=== PATIENT | male | born 1975 | race African-American/Black ===

== ENCOUNTER 2022-04-11 17:22 | Emergency (ER) | payer OTHER, SELFPAY ==
--- NOTE | 2022-04-11 17:33 | ECG_ITS ---
Measurements Intervals Leon Rate: 85 P: 68 ME: 244 QRS: 61 QRSD: 90 T: 37 QT: 335 QTc: 398 Interpretive Statements SINUS RHYTHM WITH FIRST DEGREE AV BLOCK POSSIBLE LEFT VENTRICULAR HYPERTROPHY ST SEGMENT ABNORMALITY-SUGGEST EARLY REPOLARIZATION VERSUS PERICARDITIS Electronically Signed On 04-12-2022 8:55:06 CDT by Dayo Andino M.D.
[2022-04-11 17:35] VITALS: BP 94/80; PULSE 98; RESP 20; TEMP 36.3; O2SAT 96
[2022-04-11 17:55] LABS: Basophils Absolute Auto 0.05 K/mm3 (0.00-0.10); Basophils Percent Auto 0.5 % (0.0-1.0); Hematocrit 44.8 % (40.0-54.0); Hemoglobin 14.6 g/dL (14.0-18.0); Immature Granulocyte Absolute 0.03 K/mm3 (0.00-0.00); Immature Granulocyte Percent A 0.3 % (0.0-0.0); Lymphocytes Absolute Auto 0.82 K/mm3 (1.10-4.50); Lymphocytes Percent Auto 8.1 % (18.0-42.0); Mean Corpuscular HGB Conc 32.6 g/dL (32.0-36.0); Mean Corpuscular Hemoglobin 28.5 pg (27.0-31.0); Mean Corpuscular Volume 87.3 fL (78.0-102.0); Mean Platelet Volume 8.5 fl (8.7-11.0); Monocytes Absolute Auto 0.71 K/mm3 (0.10-0.90); Monocytes Percent Auto 7.1 % (2.0-11.0); Neutrophils Absolute Auto 8.5 K/mm3 (1.7-7.2); Platelet Count Result 289 K/mm3 (150-420); Red Blood Count 5.13 M/mm3 (4.70-6.10); Red Cell Distribution Width 13.7 % (11.6-14.4); White Blood Count 10.1 K/mm3 (4.8-10.8)
[2022-04-11] MEDS: SODIUM CHLORIDE 0.9% IV 1,000 ML 999 ML IV CONT (18:00)
[2022-04-11 18:11] LABS: Alanine Aminotransferase 36 U/L (16-63); Albumin Level 4.4 g/dL (3.4-5.0); Alkaline Phosphatase 74 U/L (46-116); Anion Gap 10 mmol/L (8-16); Aspartate Amino Transferase 33 U/L (15-37); Bilirubin,Total 0.5 mg/dL (0.00-1.00); Blood Urea Nitrogen 21 mg/dL (7-18); Carbon Dioxide 27 mmol/L (21-32); Chloride 102 mmol/L (98-108); Creatine Kinase 378 U/L (39-308); Estimated Glomerular Filt Rate 40; Glucose 71 mg/dL (70-99); Osmolality Calculated 289 mOsm/kg (285-295); Potassium 3.5 mmol/L (3.5-5.1); Sodium 139 mmol/L (136-145); Total Protein 8.3 g/dL (6.4-8.2)
[2022-04-11] MEDS: ONDANSETRON INJ 4 MG/2 ML VIAL IV PUSH (18:29)
[2022-04-11 18:47] VITALS: BP 114/97; PULSE 84; RESP 20; O2SAT 99
--- NOTE | 2022-04-11 18:58 | ED.GENADULT ---
HPI - General Adult General Chief complaint: Unspecified Stated complaint: Amb Time Seen by Provider: 04/11/22 17:28 Source: patient and EMS Mode of arrival: ambulatory Limitations: no limitations History of Present Illness HPI narrative: This is a 46-year-old gentleman with no significant past medical history brought in today via EMS from because of heat exhaustion/ dehydration have a lower blood pressure and was sweating profusely is he was working outdoors and not keep himself hydrated. There is no fever chills the rest of his vital signs are unremarkable heart rate initially in the 120s. There was some mild nausea with no vomiting no diarrhea constipation no blurry vision no headache no chest pain or shortness of breath. Onset (ago): hour(s) Severity: moderate Related Data Home Medications Medication Instructions Recorded Confirmed No Home Medications 04/11/22 04/11/22 Allergies Allergy/AdvReac Type Severity Reaction Status Date / Time No Known Allergies Allergy Mild Verified 04/11/22 18:43 Review of Systems Review of Systems: All systems reviewed & are unremarkable except as noted in HPI and below PMFSH Past Medical History Medical History Patient denies medical problems Exam Const: General: cooperative, healthy appearing, comfortable, no acute distress, well developed, alert, awake and Physically active HENMT: Head: normal to inspection Ears: hearing grossly normal bilaterally General nose exam: Normal external nose present Face and sinus: normal facial exam Mouth: Yes Normal oral and palatal mucosa present Throat: posterior oropharynx normal Eyes: General: appearance normal, both eyes and all related structures Visual Montemayor: normal visual montemayor by confrontation Neck: Neck: normal visual inspection, full ROM, no lymphadenopathy and no meningeal signs Chest: Chest palpation & inspection: normal inspection of the chest Resp: Effort & Inspection: normal respiratory effort and able to speak in complete sentences Cardio: Jugular venous distension: no JVD Palpation: normal PMI Rate: regular rate Rhythm: regular rhythm : General: Yes bimanual renal exam normal bilaterally Skin: General skin exam: normal color and no rashes or lesions noted Lesions: no lesions Rashes: no rashes Neuro: General: oriented to person, oriented to place, oriented to time and patient oriented x3 Psych: Appearance: grossly normal and well kempt Mental Status: mental status grossly normal Speech and movement: Normal speech and movement present Course Course Emergency Course: reassessment patient blood pressure has improved currently 114/97 with heart rate that has improved as well from the 120s down to 84 labs reviewed with patient does show that his kidney function worsened and advised hydration and follow up with his primary care physician. Vital Signs Vital signs: Vital Signs Temperature 36.3 C L 04/11/22 17:35 Pulse Rate 98 04/11/22 17:35 Respiratory Rate 20 04/11/22 17:35 Blood Pressure 94/80 L 04/11/22 17:35 Pulse Oximetry 96 04/11/22 17:35 Oxygen Delivery Room Air 04/11/22 17:35 Temperature 36.3 C L 04/11/22 17:35 Pulse Rate 84 04/11/22 18:47 Respiratory Rate 20 04/11/22 18:47 Blood Pressure 114/97 H 04/11/22 18:47 Pulse Oximetry 99 04/11/22 18:47 Oxygen Delivery Room Air 04/11/22 18:47 Medical Decision Making Vital Signs Vital Signs: Vital Signs Temperature 36.3 C L 04/11/22 17:35 Pulse Rate 98 04/11/22 17:35 Respiratory Rate 20 04/11/22 17:35 Blood Pressure 94/80 L 04/11/22 17:35 Pulse Oximetry 96 04/11/22 17:35 Oxygen Delivery Room Air 04/11/22 17:35 Temperature 36.3 C L 04/11/22 17:35 Pulse Rate 84 04/11/22 18:47 Respiratory Rate 20 04/11/22 18:47 Blood Pressure 114/97 H 04/11/22 18:47 Pulse Oximetry 99 04/11/22 18:47 Oxygen Delivery Room Air
[2022-04-11 19:17] VITALS: BP 105/69; PULSE 88; RESP 16; TEMP 36.4; O2SAT 100
== END 2022-04-11 19:18 | disposition home or self-care (01) ==
PROVIDERS: Emergency Provider Emergency Medicine
DX: E86.0 Dehydration (principal); T67.5XXA Heat exhaustion, unspecified, initial encounter
CPT/HCPCS: 36415; 80053; 82550; 85025; 93005; 96361; 96374; 99284; J2405; J7030